=== PATIENT | female | born 1985 | race American Indian/Alaskan Native ===

== ENCOUNTER 2022-03-13 09:55 | Inpatient (IN) | payer OTHER ==
[2022-03-13 10:56] VITALS: BMI 31.1
[2022-03-13] MEDS ORDERED: ELECTROLYTE-148 SOLN 500 ML IV SCH (11:30)
[2022-03-13] MEDS ORDERED: CITRIC ACID/SODIUM CITRATE 30 ML UNIT-DOSE CUP PO ONE (11:45)
[2022-03-13] MEDS ORDERED: ELECTROLYTE-148 SOLN 1,000 ML IV SCH (12:00)
[2022-03-13] MEDS ORDERED: OXYTOCIN 20 UNITS in 0.9% NS 20 UNIT/1,000 ML INFUS.BAG IV ONE (15:57)
[2022-03-13] MEDS ORDERED: ACETAMINOPHEN 325 MG TABLET (FP) PO PRN (16:06)
[2022-03-13] MEDS ORDERED: METHYLERGONOVINE MALEATE 0.2 MG/1 ML AMP IM PRN (16:06)
[2022-03-13] MEDS ORDERED: SENNOSIDES/DOCUSATE COMBO (SENNA PLUS) TABLET (UD) PO PRN (16:06)
[2022-03-13] MEDS ORDERED: OXYTOCIN 20 UNITS in 0.9% NS 20 UNIT/1,000 ML INFUS.BAG IV SCH (16:15)
[2022-03-14] MEDS ORDERED: oxyCODONE HCL 5 MG TABLET PO PRN (04:06)
[2022-03-14] MEDS ORDERED: IBUPROFEN 800 MG/8 ML IJ IVPB ONE (06:30)
[2022-03-14 06:48] LABS: BASO % 0.1 % (0-2.0); EOS % 0.6 % (0-4.5); HEMATOCRIT 33.5 % (32.4-45.2); HEMOGLOBIN 10.7 GM/dL (10.7-15.3); MCH 23.5 pg (25.7-33.7); MCHC 31.9 g/dl (32.0-36.0); MEAN CELL VOLUME 73.8 fl (80-96); MEAN PLT VOLUME 8.7 fl (7.5-11.1); MONO % 6.9 % (3.8-10.2); NEUT % 74.4 % (42.8-82.8); PLATELET COUNT 230 10^3/uL (134-434); RBC 4.53 M/mm3 (3.60-5.2); RDW 16.5 % (11.6-15.6); WHITE BLOOD COUNT 12.6 K/mm3 (4.0-10.0)
[2022-03-14] MEDS: IBUPROFEN 600 MG TABLET (FP) PO PRN ×3 (12:14→21:07)
[2022-03-14] MEDS ORDERED: BISACODYL 10 MG SUPP.RECT RC PRN (16:06)
[2022-03-14] MEDS: SIMETHICONE 80 MG TAB.CHEW (FP) PO PRN (21:07)
[2022-03-15] MEDS: oxyCODONE HCL 5 MG TABLET PO PRN ×2 (00:36→11:06)
[2022-03-15] MEDS: IBUPROFEN 600 MG TABLET (FP) PO PRN ×2 (04:14→08:11)
[2022-03-15] MEDS: SIMETHICONE 80 MG TAB.CHEW (FP) PO PRN ×2 (04:14→08:11)
[2022-03-15 10:18] VITALS: BP 117/74; PULSE 98; TEMP 98.1
== END 2022-03-15 11:30 | disposition home or self-care (01) | DRG 785 ==
LOC: JLDR 09:55 → J3W 17:17
PROVIDERS: ADMIT Obstetrics & Gynecology; ATTEND Obstetrics & Gynecology
PROC: 10D00Z1 Extraction of Products of Conception, Low, Open Approach (ICD-10-PCS; principal; 2022-03-13)
PROC: 0UL70ZZ Occlusion of Bilateral Fallopian Tubes, Open Approach (ICD-10-PCS; 2022-03-13)
DX: O34.211 Maternal care for low transverse scar from previous cesarean delivery (principal); O69.81X0 Labor and delivery complicated by cord around neck, without compression, not applicable or unspecified; Z3A.39 39 weeks gestation of pregnancy; Z37.0 Single live birth
CPT/HCPCS: 36415; 85025; 88302-TC; 88307-TC